=== PATIENT | female | born 1965 | race Caucasian/White ===

== ENCOUNTER 2017-03-11 07:58 | Emergency (ER) | payer OTHER ==
[~2017-03-11] VITALS: Ht 165.1 cm; Wt 66.7 kg
[~2017-03-11 07:58] MED LIST: FOLIC ACID0.4 MG PO; LYRICA50 MG PO; SUCRALFATE1 GM PO; TRAZODONE50 MG PO; TREXALL15 MG PO
[2017-03-11 09:24] VITALS: BP 118/83
== END 2017-03-11 09:24 | disposition home or self-care (01) ==
LOC: ED 07:58
DX: L03.031 Cellulitis of right toe (principal); Z90.710 Acquired absence of both cervix and uterus; Z90.89 Acquired absence of other organs
CPT/HCPCS: J0696

== ENCOUNTER 2017-03-12 19:01 | Emergency (ER) | payer OTHER ==
[2017-03-12 21:10] VITALS: BP 120/88
== END 2017-03-12 21:10 | disposition home or self-care (01) ==
LOC: ED 19:01
DX: L03.031 Cellulitis of right toe (principal); M79.7 Fibromyalgia; I10 Essential (primary) hypertension; M19.90 Unspecified osteoarthritis, unspecified site; Z88.8 Allergy status to other drugs, medicaments and biological substances
CPT/HCPCS: 90715; J1885; J2001

== ENCOUNTER 2017-11-25 20:57 | Emergency (ER) | payer OTHER ==
[~2017-11-25] VITALS: Ht 165.1 cm; Wt 67.6 kg
[2017-11-25 21:07] VITALS: Ht 165.1 cm; Wt 67.6 kg
[2017-11-26 00:17] VITALS: BP 136/79
== END 2017-11-26 00:17 | disposition home or self-care (01) ==
LOC: ED 20:57
DX: J06.9 Acute upper respiratory infection, unspecified (principal); I10 Essential (primary) hypertension; M19.90 Unspecified osteoarthritis, unspecified site; Z88.8 Allergy status to other drugs, medicaments and biological substances; Z90.710 Acquired absence of both cervix and uterus
CPT/HCPCS: J7030; J7613; J7644

== ENCOUNTER 2018-04-28 20:48 | Emergency (ER) | payer OTHER ==
[~2018-04-28] VITALS: Ht 167.6 cm; Wt 66.2 kg
[2018-04-28 20:55] VITALS: Ht 167.6 cm; Wt 66.2 kg
[2018-04-28 21:36] LABS: microscopic required? YES; urine erythrocyte 1+ (NEGATIVE)
[2018-04-28 21:45] VITALS: BP 143/102
== END 2018-04-28 22:13 | disposition home or self-care (01) ==
LOC: ED 20:48
PROVIDERS: Emergency Medicine
DX: G89.29 Other chronic pain (principal); M54.5 Low back pain; N39.0 Urinary tract infection, site not specified; I10 Essential (primary) hypertension; M79.7 Fibromyalgia; Z90.710 Acquired absence of both cervix and uterus; M06.9 Rheumatoid arthritis, unspecified; Z88.5 Allergy status to narcotic agent
CPT/HCPCS: J1885

== ENCOUNTER 2018-08-26 15:10 | Emergency (ER) | payer OTHER ==
[~2018-08-26] VITALS: Ht 165.1 cm; Wt 63.0 kg
[2018-08-26 19:24] LABS: BASOPHIL % 0.5 % (0-2); PLATELET COUNT 293 x10^3mcL (130-400); RED CELL DISTRIBUTION WIDTH 13.4 % (11.5-14.5)
[2018-08-26 21:13] LABS: CALCIUM 9.3 mg/dL (8.5-10.1); CARBON DIOXIDE 26.4 mmol/L (21-32); CHLORIDE SERUM 101 mmol/L (98-107); CREATININE SERUM 0.6 mg/dL (0.6-1.0); GFR1 > 60 mL/min; GLUCOSE SERUM 116 mg/dL (74-106); SODIUM SERUM 137 mmol/L (136-145)
[2018-08-26 21:17] LABS: ALKALINE PHOSPHATASE 86 U/L (46-116); ALT/SGPT 30 U/L (14-59); AST/SGOT 14 U/L (15-37); BILIRUBIN TOTAL 0.3 mg/dL (0.20-1.00)
[2018-08-26 21:18] LABS: TOTAL PROTEIN, SERUM 8.7 g/dL (6.4-8.2)
[2018-08-26 21:50] VITALS: BP 133/84
== END 2018-08-26 21:50 | disposition home or self-care (01) ==
LOC: ED 15:10
PROVIDERS: Emergency Medicine
DX: J20.9 Acute bronchitis, unspecified (principal); I10 Essential (primary) hypertension; M79.7 Fibromyalgia; M06.9 Rheumatoid arthritis, unspecified; Z90.710 Acquired absence of both cervix and uterus; Z88.5 Allergy status to narcotic agent
CPT/HCPCS: 36415; 87804

== ENCOUNTER 2019-01-19 16:10 | Emergency (ER) | payer MEDICAID ==
[~2019-01-19] VITALS: Ht 165.1 cm; Wt 63.5 kg
[2019-01-19 16:17] VITALS: Ht 165.1 cm; Wt 63.5 kg
[2019-01-19 19:14] VITALS: BP 129/68
== END 2019-01-19 19:14 | disposition home or self-care (01) ==
LOC: ED 16:10
DX: M54.6 Pain in thoracic spine (principal); M54.2 Cervicalgia; R51 Headache; M06.9 Rheumatoid arthritis, unspecified; M79.7 Fibromyalgia; I10 Essential (primary) hypertension; Z90.710 Acquired absence of both cervix and uterus; Z88.5 Allergy status to narcotic agent; V43.52XA Car driver injured in collision with other type car in traffic accident, initial encounter; Y93.I9 Activity, other involving external motion; Y92.488 Other paved roadways as the place of occurrence of the external cause; Y99.8 Other external cause status
CPT/HCPCS: J1885; Q0092